=== PATIENT | female | born 2000 | race Hispanic/Latino ===

== ENCOUNTER 2022-05-25 12:51 | Emergency (ER) | payer OTHER ==
[~2022-05-25] VITALS: Ht 157.5 cm; Wt 68.0 kg
[2022-05-25] MEDS ORDERED: BACITRACIN ZINC 0.9GM TP ONE (13:15)
[2022-05-25] MEDS ORDERED: TETANUS/DIPHTHERIA TOX ADULT 0.5 ML SYR IM ONE (13:15)
[2022-05-25] MEDS ORDERED: CLINDAMYCIN HC150 MG PO (13:29)
[2022-05-25] MEDS ORDERED: IBUPROFEN600 MG PO (13:29)
[2022-05-25] MEDS: CLINDAMYCIN HCL 150 MG CAP PO NR ×3 (13:31→13:34)
== END 2022-05-25 13:44 | disposition home or self-care (01) ==
LOC: ER 12:58
DX: L02.416 Cutaneous abscess of left lower limb (principal); G40.909 Epilepsy, unspecified, not intractable, without status epilepticus
CPT/HCPCS: 90471; 90714; 99283